=== PATIENT | male | born 1945 | race Hispanic/Latino ===

== ENCOUNTER 2024-10-11 06:51 | Observation (INO) | payer OTHER ==
[2024-10-06 10:40] LABS: BASOPHILS # (AUTO) 0.04 K/uL (0.00-0.20); BASOPHILS % (AUTO) 0.6 % (0.0-5.0); EOSINOPHILS # (AUTO) 0.17 K/uL (0.00-0.70); EOSINOPHILS % (AUTO) 2.6 % (0.0-8.0); HEMATOCRIT 43.2 % (42-54); IMMATURE GRANULOCYTE ABSOLUTE 0.02 K/uL (0-1); LYMPHOCYTES % (AUTO) 31.6 % (21.0-51.0); MEAN CORPUSCULAR HEMOGLOBIN 32.1 pg (27.0-33.0); MEAN CORPUSCULAR HGB CONC 33.6 g/dL (32.0-36.0); MEAN CORPUSCULAR VOLUME 95.6 fL (79-99); MONOCYTES # (AUTO) 0.7 K/uL (0.1-1.0); MONOCYTES % (AUTO) 10.9 % (3.0-13.0); NEUTROPHILS # (AUTO) 3.5 K/uL (1.8-7.7); PLATELET COUNT (AUTO) 180 K/uL (130-400); RED BLOOD CELL COUNT(AUTO) 4.52 MIL/uL (4.50-6.20); WHITE BLOOD COUNT (AUTO) 6.4 K/uL (4.8-10.8)
[2024-10-06 10:50] VITALS: BP 141/86; PULSE 73; RESP 16; TEMP 97.9
[2024-10-06 10:50] LABS: CREATININE 0.8 mg/dL (0.5-1.3); POTASSIUM 4.7 mmol/L (3.5-5.1)
--- NOTE | 2024-10-06 11:28 | NUR ---
PREOP DA RT HERE FOR INCENTIVE SPIROMETRY TEACHING. PT ACHIEVED [id number]
[~2024-10-11] VITALS: Ht 172.7 cm; Wt 110.7 kg
[2024-10-11] VITALS (28 sets, daily range): BP systolic 100–145; BP diastolic 56–88; PULSE 61–82; RESP 14–19; TEMP 96.8–98.7; O2SAT 95–98
[~2024-10-11 06:51] MED LIST: ASPI-1005 PO; ATOR40TA71 PO; LORA10TA60 PO; LOSA50TA64 PO; METO-391 PO
[2024-10-11] MEDS: ceFAZolin SODIUM 2 GM VIAL ONE (08:18)
[2024-10-11] MEDS: LACTATED RINGERS 1000ML 1,000 ML IV ONE (08:18)
[2024-10-11] MEDS ORDERED: LIDOCAINE PF 100MG/5ML (2%) SYRINGE 5ML ONE (08:34)
[2024-10-11] MEDS ORDERED: proPOFol 10 MG/ML 20ML VIAL IV ONE (08:34)
[2024-10-11] MEDS ORDERED: rocuRONium bROMide 10MG/1ML 5ML VL ONE (08:35)
[2024-10-11] MEDS ORDERED: FENTanyl CITRate PF 50 MCG/1 ML 2ML VIAL ONE (08:35)
[2024-10-11] MEDS ORDERED: ROPivacaine 0.5% 5MG/ML 30ML ONE (08:37)
[2024-10-11] MEDS ORDERED: ketaMINE 50MG/ML SYRINGE 50 MG/ML DISP.SYRIN ONE (08:38)
[2024-10-11] MEDS ORDERED: ondanSETRON 4MG INJ ONE (09:51)
[2024-10-11] MEDS ORDERED: dexaMETHasone SOD PHOSPHATE 10MG/ML 1ML VIAL ONE (09:51)
[2024-10-11] MEDS ORDERED: NEOSTIGMINE METHYLSULFATE 1MG/ML IV ONE (10:05)
[2024-10-11] MEDS ORDERED: GLYCOPYRROLATE 0.2 MG/ML 5 ML VIAL ONE (10:05)
[2024-10-11] MEDS: ROPivacaine 0.5% 5MG/ML 30ML ONE (10:48)
[2024-10-11] MEDS: ketOROlac 30MG VIAL (30MG/ML) ONE (10:48)
--- NOTE | 2024-10-11 12:15 | OP ---
Operative Note: DATE OF PROCEDURE: 10/11/24 PREOPERATIVE DIAGNOSIS: Right knee osteoarthritis. POSTOPERATIVE DIAGNOSIS: Right knee osteoarthritis. PROCEDURE PERFORMED: Right knee total knee arthroplasty. SURGEON: Marie Oconnell MD [employer] SALES ENGINEER: Darren Lee. ANESTHESIA: General with adductor canal block. ANESTHESIA: PATRICIO Mcnamara. ESTIMATED BLOOD LOSS: 50cc. COMPLICATIONS: None. DRAINS: None. SPECIMENS REMOVED: resected bone. Not sent to pathology. IMPLANTS: [employer] II BCS size 8 Oxinium femur, size 7 tibial base plate, narrow 35 mm patella, 12 mm polyethylene STATEMENT OF MEDICAL NECESSITY: The patient is a 79-year-old male who suffers from right knee osteoarthritis failing conservative management. After discussion of the risks, benefits, and alternatives with the patient, they voluntarily agreed to undergo the aforementioned procedure. DESCRIPTION OF PROCEDURE: Patient was properly identified in the preoperative holding area. Surgical site marking was verified and surgery consent reviewed. The patient was then taken to the operating room and placed in supine position on the OR table. After induction of general anesthesia, preoperative antibiotics were given, all bony prominences were well-padded, and a well padded tourniquet was applied but not inflated at this time. The right lower extremity was then prepped and draped in usual sterile fashion. Surgical time out was done verifying correct surgery, side, site, and location to be performed. We then began the procedure by exsanguinating the limb using an Esmarch and inflating the tourniquet to 350 mmHg. At this point, we made an anterior midline incision using a 10 blade, coming down sharply the level of the fascia. Skin flaps were elevated medially and laterally. We then obtained a clean 10 blade and performed a standard medial parapatellar arthrotomy. We excised the infrapatellar fat pad. We performed our soft tissue releases off of the tibia. We transected the ACL and removed the anterior portion of the medial & lateral meniscus. We then brought the knee into hyperflexion with the patella everted. We used our entry reamer to enter the femoral canal. We then placed our intramedullary cutting guide for our distal femoral cutting block. We then performed our distal femoral osteotomy ensuring appropriate rotation and removed the bony wafer. We then removed these pins and block and then used jig 2 to size the distal femur with the after mentioned size found. We then placed our 5-in-1 cutting block in 4.5 degrees of external rotation and took our 5 cuts ensuring to protect the patellar tendon and the collateral ligaments. We then removed the cutting block and our bony fragments using a curved osteotome. We then placed our PCL retractor subluxating the tibia anteriorly. Using an extra medullary tibial cutting guide, we hung the block for our proximal tibial cut taking 2 mm off the more diseased portion. Prior to pinning this block in place, we ensured appropriate varus/valgus alignment and posterior slope similar to the chilkat slope of the patient's knee. We then performed our proximal tibial osteotomy and removed the bony wafer using Bovie electrocautery to release any remaining soft tissue attachments. We then used our tibial sizing paddle and checked once more for varus & valgus alignment and found this to be appropriate. At this point, we pinned our tibial paddle in place. We then removed the PCL retractor and subluxated the tibia posteriorly while we placed our femoral trial component. We then finished preparing the notch with the reamer and box chisel. The notch portion of the trial femoral component was then placed. A posterior stabilized polyethylene, size 9 trial was placed. This was then increased up to a size 10 due to laxity with varus and valgus stress. The knee was then taken through range of motion and found to have stable full range of motion. We then placed a bump under the ankle and everted the patella to perform our freehand cut of the undersurface the patella. We then sized our patella and reamed to the lug holes for this. We placed our trial patellar component and begin to take the knee through range of motion. The patella had extreme lateral tracking, and we performed a lateral release. However the patella continued to have significant lateral tracking. We adjusted our tibial component rotation and placed a towel clip to approximate the soft tissues and had slightly better patellar tracking. We therefore elected to go with the 7.5 mm thickness patellar component. At this point we began removing our trial components and punched the tibial keel prior to removing our tibial trial component. Final components were opened and cement was mixed on the back table while we injected local cocktail in the posterior capsule. We then thoroughly irrigated out the bone and dried the bony surfaces. We cemented our tibial component in place ensuring to remove excess cement and placed our trial polyethylene. We then cemented our femoral component in place once again taking time to ensure excess cement was removed leg was brought into full extension to help squeeze the excess cement from around the femoral component. We then brought the knee back in a flexion to remove this portion of the cement at this point we placed the ankle in a bump thoroughly irrigated off the patellar component and cemented our patellar component in standard fashion again removing excess cement. While we waited for the cement to cure, we thoroughly irrigated out the wound with normal saline. Once our cement had cured, we took the knee through a range of motion and found full and stable range of motion. We then elected to use the size 12 polyethylene and removed our trial polyethylene. We impacted our final polyethylene component in place in standard fashion and took the knee through a range of motion check once more. This was satisfactory so we began to repair the arthrotomy using #1 Vicryl in interrupted [id number] fashion. Subcutaneous tissue was repaired using 2-0 Vicryl. Running subcuticular 3-0 Monocryl stitch with Dermabond placed over this for the skin. We then applied a foam barrier dressing and a pressure dressing consisting of 4 x 4's fluffs and an Giuseppe wrap. The tourniquet was then deflated. Patient was awakened from anesthesia, and they were taken to the recovery room in stable condition. MARIE OCONNELL MD Oct 11, 2024 12:15
--- NOTE | 2024-10-11 12:23 | DS ---
Discharge Summary Hospital Course Summary: The patient was admitted to the hospital postoperatively on 10/11/2024 after undergoing right total knee arthroplasty. They did well with routine postoperative pain control. They worked well with physical therapy. They developed some acute blood loss anemia but remained asymptomatic. His blood pressures were a little soft so we decreased the usual pain regimen. He had the normal stress response leukocytosis post operatively but this was noted to be down trending. The hospital course was otherwise uncomplicated. They were subsequently able to be discharged on postoperative day POD 2 once discharge arrangements were made with home health physical therapy. Environmental Science Instructor(s): None Procedure(s): Right total knee arthroplasty, 10/11/2024 Assessment/Plan: ASSESSMENT: Status post right total knee arthroplasty - doing well Acute blood loss anemia - asymptomatic PLAN: See discharge instructions Discharge Instructions: Begin working with home health physical therapy. Dressing may be removed 10/13/2024 and left open to air. Showers ok allowing soap and water to run over the wound. Pat dry. Do not submerge wound in tub/pool. Do not apply ointments. Do not apply Betadine. Do not apply peroxide. Ice packs to decrease pain/swelling. Prescriptions have been sent to the pharmacy: *[place] 5/325mg 1 tab every 4 hours as needed for severe pain. (please call for refills) Cyclobenzaprine 5mg 1 tab every 8 hours as needed for muscle spasm pain. Colace 100mg 1 tab orally twice a day as needed for constipation. Aspirin 325mg daily for 30 days to prevent blood clots. After 30 days resume your usual baby aspirin. Call for a follow-up appointment in 2-3 weeks at [facility]. Home Medications: Active Scripts Hydrocodone/Acetaminophen (Hydrocodon-Acetaminophen 5-325) 5 Mg-325 Mg Tablet, 1 TAB PO Q4H PRN for MODERATE PAIN (4-6), #42 TAB 0 Refills Prov:RENÉ GOODWIN MD 10/13/24 Reported Medications Loratadine (Claritin) 10 Mg Tablet, 10 MG PO AD PRN for ALLERGIES, TAB /08/31 Metoprolol Succinate (Metoprolol Succinate) 50 Mg Tab.er.24h, 25 MG PO AM, TAB 25 Atorvastatin Calcium (Atorvastatin Calcium) 40 Mg Tablet, 20 MG PO HS, TAB 25 Losartan Potassium (Losartan Potassium) 50 Mg Tablet, 25 MG PO AM, TAB 10/06/24 Aspirin (ASPIRIN 81MG CHEW TAB) 81 Mg Tab.chew, 81 MG PO DAILY, TAB.CHEW 10/06/24 RENÉ GOODWIN MD Oct 11, 2024 12:23
[2024-10-11] MEDS ORDERED: FERROUS FUMARATE 324 MG TABLET PO PRN ×2 (12:30→13:30)
[2024-10-11] MEDS: 0.9%NACL 1000ML 1,000 ML IV SCH ×2 (12:30→14:10)
[2024-10-11] MEDS ORDERED: CALCIUM CARB 500MG PO PRN ×2 (12:30→13:30)
[2024-10-11] MEDS ORDERED: ondanSETRON 4MG INJ IVP PRN ×2 (12:30→13:30)
[2024-10-11] MEDS: FENTanyl CITRate PF 50 MCG/1 ML 2ML VIAL ONE (12:35)
[2024-10-11] MEDS: hydroMORPHone 1 MG INJ ONE (13:02)
[2024-10-11] MEDS: ketOROlac 15MG/ML VIAL (15MG/ML) IV SCH (13:26)
[2024-10-11] MEDS: ketOROlac 15MG/ML VIAL (15MG/ML) ONE (13:26)
[2024-10-11] MEDS ORDERED: traMADol HCL 50 MG TABLET PO PRN (13:30)
[2024-10-11] MEDS ORDERED: PoTASSium chl 10% ELIXIR 20MEQ 20 MEQ/15 ML UDCUP PO PRN (13:30)
[2024-10-11] MEDS ORDERED: HYDROcodone/APAP 5/325 1 TAB TABLET PO PRN (13:30)
[2024-10-11] MEDS ORDERED: LORATAdine 10 mg 10 MG TABLET PO PRN (13:30)
[2024-10-11] MEDS ORDERED: PoTASSium chloRIDE 20MEQ ER 20 MEQ ERTAB PO PRN (13:30)
[2024-10-11] MEDS ORDERED: PoTASSium chloRIDE 20MEQ/100ML 100 ML IV PRN (13:30)
--- NOTE | 2024-10-11 13:45 | NUR ---
Admit Patient admitted from PACU. Patient aox4, complaining of pain in right knee, 01/13. and family at bedside, oriented to room and educated on plan of care. Patient's right knee dressing cdi, pulse strong, sensation present. SCD applied.
[2024-10-11] MEDS: FAMOTIDINE 20MG VIAL IV ONE (14:03)
[2024-10-11] MEDS: acetaMINOPHEN 325 MG TAB ONE (14:03)
--- NOTE | 2024-10-11 14:05 | HMCIMG ---
KNEE/PATELLA 1-2VWS RT HISTORY: Post right total knee arthroplasty COMPARISON: None TECHNIQUE: Images of the right knee were obtained. FINDINGS: Right total knee arthroplasty changes are seen. Soft tissue swelling is seen with soft tissue emphysema. There is no acute displaced fracture or dislocation. Degenerative changes are seen. IMPRESSION: 1. Findings as described above.
[2024-10-11] MEDS: GABApentin 100 MG CAPSULE PO SCH (14:09)
[2024-10-11] MEDS: HYDROcodone/APAP 5/325 1 TAB TABLET PO PRN ×2 (14:10→18:24)
--- NOTE | 2024-10-11 15:45 | NUR ---
Order received and patient seen. Prior to surgery, patient was indep and lives with spouse. Plan is for DC home. Patient reports he has walker from previous surgery. Addendum: 10/11/24 at 1639 by KOLBY CARLTON PT Amended: Links added.
[2024-10-11] MEDS: INSULIN humuLIN R 100 UNIT/ML 3ML SQ SCH (16:30)
[2024-10-11] MEDS: ceFAZolin SODIUM 2 GM VIAL IVP SCH (16:58)
--- NOTE | 2024-10-11 17:00 | NUR ---
ORTHO COORDINATOR: TEACHING REGARDING DVT AND PNEUMONIA PREVENTION, PAIN EXPECTATIONS AND PAIN MANAGEMENT. PATIENT IN BED, AND SON AT BEDSIDE. B SCD SLEEVES IN PLACE. LEFT NOT FUNCTIONING. REPLACED SLEEVES. B SCD IN PLACE AND FUNCTIONING. ICE PACK TO RIGHT KNEE. INCENTIVE SPIROMETER ON BEDSIDE TRAY. PATIENT RETURN DEMONSTRATED PROPER USE OF INCENTIVE SPIROMETER AND FOOT FLEXION AND EXTENSION EXERCISES. PATIENT INSTRUCTED TO PERFORM INCENTIVE SPIROMETER 10 BREATHS PER HOUR. PATIENT AND VERBALIZED UNDERSTANDING. PAIN EXPECTATIONS REVIEWED. PATIENT HAD LEFT TKA IN 2011, REPORTS MORE PAIN WITH THIS KNEE. REVIEWED NUMERIC PAIN SCORE. ENCOURAGED PATIENT TO SET AN ALARM EVERY FOUR HOURS TO CHECK PAIN LEVEL. REMINDED PAIN MEDICATION MUST BE REQUESTED. RATIONALE PROVIDED. PATIENT VERBALIZED UNDERSTANDING REGARDING PAIN MANAGEMENT. PATIENT DESIRES TO RETURN HOME WITH HOME HEALTH PHYSICAL THERAPY. NO ADDITIONAL QUESTIONS/CONCERNS AT THIS TIME. .
[2024-10-11] MEDS ORDERED: ceFAZolin SODIUM 1 GM VIAL IVP SCH (18:30)
[2024-10-11] MEDS: atorVAStatin 20 MG TABLET PO SCH (20:03)
[2024-10-11] MEDS: doCUSate SODIUM 100 MG CAP PO SCH (20:03)
[2024-10-11] MEDS: CYCLOBENZAPRINE HCL 10 MG TABLET PO PRN (22:21)
[2024-10-12] VITALS (8 sets, daily range): BP systolic 87–113; BP diastolic 46–57; PULSE 59–88; RESP 18–20; TEMP 97.9–98.5; O2SAT 96
[2024-10-12 04:16] LABS: HEMATOCRIT 32.5 % (42-54); MEAN CORPUSCULAR HEMOGLOBIN 31.9 pg (27.0-33.0); MEAN CORPUSCULAR HGB CONC 33.5 g/dL (32.0-36.0); RED BLOOD CELL COUNT(AUTO) 3.42 MIL/uL (4.50-6.20); RED CELL DISTRIBUTION WIDTH 12.9 % (11.0-15.5); WHITE BLOOD COUNT (AUTO) 15.2 K/uL (4.8-10.8)
[2024-10-12 04:30] LABS: CREATININE 1.3 mg/dL (0.5-1.3); POTASSIUM 4.4 mmol/L (3.5-5.1)
[2024-10-12] MEDS: LoSARTan 25 MG TABLET PO SCH (07:34)
--- NOTE | 2024-10-12 08:21 | PN ---
Ortho postop day one. This morning the patient is awake alert oriented. He is resting comfortably seated out of bed in a chair enjoying his breakfast. Reports adequate pain control overnight. Vital signs have been stable although he has had some slight hypotension 98/54 typically running in the one 100s over 60s. The patient asymptomatic. Laboratory results reviewed. Noted to have a drop in hemoglobin and hematocrit as expected after TKA. Patient is asymptomatic we will address per protocol as necessary. Operative findings discussed with the patient. Voiding on his own without difficulty. Performing incentive spirometry appropriately. I removed the Giuseppe bandage from the operative extremity in the anterior dressing is intact. He is alternating extension and flexion on a footstool. Gastrocnemius soft nontender. Negative Homans. Patient is anticipating going home with home health. Voices that he will need a shower chair we will refer this to case management. And ambulated with therapy yesterday and walked about 30 ft and is pending further physical therapy this morning. Assessment: Status post right total knee arthroplasty. Asymptomatic acute postoperative blood loss anemia. Plan: Continue with Dr. Oconnell's total knee arthroplasty protocol and discharge planning. Asymptomatic acute postoperative blood loss anemia addressed with the protocol as necessary. Vitals/Labs Vital Signs Date Time Temp Pulse Resp B/P (MAP) Pulse Ox O2 Delivery O2 Flow Rate FiO2 10/12/24 07:50 98.1 60 18 96/55 100 Nasal Cannula 2.0 24 Laboratory Tests 10/12/24 03:37 Medications Current Medications Cefazolin Sodium 2 gm STK-MED ONCE .ROUTE Last administered on 10/11/24at 10:18; Start 10/11/24 at 07:53; Stop 10/11/24 at 07:53; Status DC Lactated Ringer's 1,000 ml @ As Directed STK-MED ONCE IV Last administered on 10/11/24at 08:18; Start 10/11/24 at 07:53; Stop 10/11/24 at 07:53; Status DC Acetaminophen 325 mg STK-MED ONCE .ROUTE; Start 10/11/24 at 08:28; Stop 10/11/24 at 08:29; Status DC Famotidine 20 mg STK-MED ONCE IV; Start 10/11/24 at 08:28; Stop 10/11/24 at 08:29; Status DC Lidocaine HCl 100 mg STK-MED ONCE .ROUTE; Start 10/11/24 at 08:34; Stop 10/11/24 at 08:34; Status DC Propofol 200 mg STK-MED ONCE IV; Start 10/11/24 at 08:34; Stop 10/11/24 at 08:35; Status DC Rocuronium [place] 50 mg STK-MED ONCE .ROUTE; Start 10/11/24 at 08:35; Stop 10/11/24 at 08:35; Status DC Fentanyl Citrate 100 mcg STK-MED ONCE .ROUTE; Start 10/11/24 at 08:35; Stop 10/11/24 at 08:35; Status DC Ropivacaine 150 mg STK-MED ONCE .ROUTE; Start 10/11/24 at 08:37; Stop 10/11/24 at 08:38; Status DC Ketamine HCl 50 mg STK-MED ONCE .ROUTE; Start 10/11/24 at 08:38; Stop 10/11/24 at 08:38; Status DC Ketorolac Tromethamine 30 mg STK-MED ONCE .ROUTE Last administered on 10/11/24at 10:48; Start 10/11/24 at 08:46; Stop 10/11/24 at 08:47; Status DC Ropivacaine 150 mg STK-MED ONCE .ROUTE Last administered on 10/11/24at 10:48; Start 10/11/24 at 08:46; Stop 10/11/24 at 08:47; Status DC Dexamethasone Sodium Phosphate 10 mg STK-MED ONCE .ROUTE; Start 10/11/24 at 09:51; Stop 10/11/24 at 09:51; Status DC Ondansetron HCl 4 mg STK-MED ONCE .ROUTE; Start 10/11/24 at 09:51; Stop 10/11/24 at 09:51; Status DC Glycopyrrolate 1 mg STK-MED ONCE .ROUTE; Start 10/11/24 at 10:05; Stop 10/11/24 at 10:05; Status DC Neostigmine Methylsulfate 10 mg STK-MED ONCE IV; Start 10/11/24 at 10:05; Stop 10/11/24 at 10:05; Status DC Sodium Chloride 1,000 ml @ 100 mls/hr Q10H IV; Start 10/11/24 at 12:30; Stop 10/12/24 at 12:29 Polyethylene Glycol 17 gm DAILY PO; Start 10/12/24 at 09:00; Stop 11/11/24 at 08:59 Bisacodyl 10 mg DAILY PRN RC; Start 10/14/24 at 12:30; Stop 11/13/24 at 12:29 Ferrous Fumarate 324 mg DAILY PRN PO; Start 10/11/24 at 12:30; Stop 11/10/24 at 12:29 Ondansetron HCl 4 mg Q6H PRN IVP; Start 10/11/24 at 12:30; Stop 11/10/24 at 12:29 Calcium Carbonate 500 mg Q12H PRN PO; Start 10/11/24 at 12:30; Stop 11/10/24 at 12:29 Cefazolin Sodium 2 gm Q8H IVP Last administered on 10/12/24at 01:34; Start 10/11/24 at 17:30; Stop 10/12/24 at 01:31; Status DC Fentanyl Citrate 100 mcg STK-MED ONCE .ROUTE Last administered on 10/11/24at 12:35; Start 10/11/24 at 12:32; Stop 10/11/24 at 12:32; Status DC Hydromorphone HCl 1 mg STK-MED ONCE .ROUTE Last administered on 10/11/24at 13:02; Start 10/11/24 at 12:42; Stop 10/11/24 at 12:43; Status DC Sodium Chloride 1,000 ml @ 100 mls/hr Q10H IV Last administered on 10/11/24at 23:51; Start 10/11/24 at 13:30; Stop 10/12/24 at 13:29 Polyethylene Glycol 17 gm DAILY PO; Start 10/12/24 at 09:00; Stop 10/11/24 at 13:18; Status DC Bisacodyl 10 mg DAILY PRN RC; Start 10/14/24 at 13:30; Stop 10/11/24 at 13:18; Status DC Ferrous Fumarate 324 mg DAILY PRN PO; Start 10/11/24 at 13:30; Stop 10/11/24 at 13:18; Status DC Ondansetron HCl 4 mg Q6H PRN IVP; Start 10/11/24 at 13:30; Stop 10/11/24 at 13:18; Status DC Calcium Carbonate 500 mg Q12H PRN PO; Start 10/11/24 at 13:30; Stop 10/11/24 at 13:18; Status DC Insulin Human Regular INSULIN SLIDING SCAL... ACHS SQ; Start 10/11/24 at 16:30; Stop 11/10/24 at 16:29 Cefazolin Sodium 2 gm Q8H IVP; Start 10/11/24 at 18:30; Stop 10/11/24 at 13:19; Status DC Cyclobenzaprine HCl 5 mg Q8H PRN PO Last administered on 10/11/24at 22:21; Start 10/11/24 at 13:30; Stop 11/10/24 at 13:29 Gabapentin 100 mg TID PO Last administered on 10/11/24at 20:04; Start 10/11/24 at 14:00; Stop 11/10/24 at 13:59 Aspirin 325 mg DAILY PO; Start 10/12/24 at 09:00; Stop 11/11/24 at 08:59 Ketorolac Tromethamine 15 mg Q8H IV Last administered on 10/12/24at 05:23; Start 10/11/24 at 13:30; Stop 10/12/24 at 05:31; Status DC Docusate Sodium 100 mg BID PO Last administered on 10/11/24at 20:03; Start 10/11/24 at 21:00; Stop 11/10/24 at 20:59 Potassium Chloride 100 ml @ 100 mls/hr AD PRN IV; Start 10/11/24 at 13:30; Stop 11/10/24 at 13:29 Potassium Chloride 20 meq AD PRN PO; Start 10/11/24 at 13:30; Stop 11/10/24 at 13:29 Potassium Chloride 20 meq AD PRN PO; Start 10/11/24 at 13:30; Stop 11/10/24 at 13:29 Tramadol HCl 50 mg Q6H PRN PO; Start 10/11/24 at 13:30; Stop 10/16/24 at 13:29 Acetaminophen/ Hydrocodone Bitart Q4H PRN PO; Start 10/11/24 at 13:30; Stop 10/11/24 at 13:22; Status DC Atorvastatin Calcium 20 mg HS PO Last administered on 10/11/24at 20:03; Start 10/11/24 at 21:00; Stop 11/10/24 at 20:59 Loratadine 10 mg DAILY PRN PO; Start 10/11/24 at 13:30; Stop 11/10/24 at 13:29 Losartan Potassium 25 mg AM PO; Start 10/12/24 at 09:00; Stop 11/11/24 at 08:59 Metoprolol Succinate 25 mg AM PO; Start 10/12/24 at 09:00; Stop 11/11/24 at 08:59 Ketorolac Tromethamine 15 mg STK-MED ONCE .ROUTE; Start 10/11/24 at 13:19; Stop 10/11/24 at 13:19; Status DC Acetaminophen/ Hydrocodone Bitart 1 tab Q4H PRN PO Last administered on 10/11/24at 18:24; Start 10/11/24 at 13:30; Stop 10/16/24 at 13:29 Acetaminophen/ Hydrocodone Bitart 2 tab Q4H PRN PO Last administered on 10/12/24at 03:30; Start 10/11/24 at 13:30; Stop 10/16/24 at 13:29 ROSALIE FRANCO NP Oct 12, 2024 08:21
[2024-10-12] MEDS: polyETHYLene GLYCol 3350 17 GM POWD.PACK PO SCH (08:38)
[2024-10-12] MEDS: ASPIRIN 325MG EC TAB PO SCH (08:38)
[2024-10-12] MEDS: metOPROLol sucCINATE 25 MG TAB.SR.24H PO SCH (08:40)
[2024-10-12] MEDS ORDERED: polyETHYLene GLYCol 3350 17 GM POWD.PACK PO SCH (09:00)
--- NOTE | 2024-10-12 11:30 | NUR ---
HYPOTENSION Patient up in chair in morning. 70/30 bp, recheck 75/35. Patient aox4, no complaints of dizziness, talking. Assisted to bed and placed in trendelenberg - patient able to transfer with mininal assistance. Repeat BP 10 min later 87/45. Notified primary RADIOTELEGRAPHER Dora. Per medical scientific officer, d/c gabapentin, admin 1 tab only of norco, hold bp as appropriate. Muscle relaxer ok to give.
--- NOTE | 2024-10-12 13:06 | NUR ---
DC PLAN VISITED WITH PATIENT. PATIENT LIVES WITH SPOUSE. INDEPENDENT ABLE TO PERFORM ADL'S. PATIENT HAS WALKER AND BEDSIDE COMMODE. COMFIRMED COMMODE CM RECEIVE MESSAGE FROM [facility] THIS MORNING THAT PATIENT MIGHT NEED ONE. PER PATIENT TOLD HIM THEY DO HAVE IT ITS JUST IN THE GARAGE. PRESENT AND CONFIRMED THEY HAVE COMMODE AND WALKER. JONG RECEIVED FOR ANY IN NETWORK BUT WOULD PREFER [facility]. PACKET SENT SPOKE TO [facility] SAID RECEIVED AND WORKING ON IT. Addendum: 10/12/24 at 1322 by JA STANFORD RN CM Amended: Links added.
[2024-10-13 04:09] VITALS: BP 111/71; PULSE 101; RESP 19; TEMP 98.8
[2024-10-13 07:53] VITALS: BP 121/61; PULSE 101; RESP 18; TEMP 99
[2024-10-13 08:00] VITALS: O2SAT 99
[2024-10-13 11:15] LABS: MEAN CORPUSCULAR HEMOGLOBIN 32.5 pg (27.0-33.0); MEAN CORPUSCULAR HGB CONC 34.1 g/dL (32.0-36.0); MEAN CORPUSCULAR VOLUME 95.1 fL (79-99); RED BLOOD CELL COUNT(AUTO) 3.05 MIL/uL (4.50-6.20); RED CELL DISTRIBUTION WIDTH 13.1 % (11.0-15.5); WHITE BLOOD COUNT (AUTO) 12.1 K/uL (4.8-10.8)
[2024-10-13 11:45] VITALS: BP 104/61; PULSE 91; RESP 20; TEMP 98.4
--- NOTE | 2024-10-13 13:45 | NUR ---
ORTHO COORDINATOR: REINFORCED TEACHING PATIENT UP TO RESTROOM. AT BEDSIDE. REINFORCED TEACHING REGARDING CONTINUATION OF DVT AND PNEUMONIA PREVENTION ONCE DISCHARGED HOME WITH HOME HEALTH PHYSICAL THERAPY. ENCOURAGED TO HAVE PATIENT CONTINUE TO PREMEDICATE PRIOR TO PHYSICAL THERAPY. PATIENT'S VERBALIZED UNDERSTANDING TO INSTRUCTIONS. NO ADDITIONAL QUESTIONS/CONCERNS AT THIS TIME.
[2024-10-13 13:47] VITALS: BP 209/95
--- NOTE | 2024-10-13 14:58 | NUR ---
[facility] [phone] SENT UPDATES REQUESTED BY NM INCLUDING REPEAT CBC. ACCEPTED TO [facility] SPOKE TO [facility] SAID WILL SEE PATIENT TOMORROW. LET MD AND NURSE KNOW OF ACCEPTANCE. Addendum: 10/13/24 at 1501 by JA STANFORD RN CM Amended: Links added.
[2024-10-13 15:15] VITALS: BP 114/53; PULSE 89; RESP 20; TEMP 98.6
[2024-10-13] MEDS ORDERED: CYCL-309 PO (16:38)
[2024-10-13] MEDS ORDERED: DOCU-116 PO (16:38)
[2024-10-13] MEDS ORDERED: HYDR-4060 PO (16:38)
[2024-10-13] MEDS ORDERED: ASPI-891 PO (16:38)
--- NOTE | 2024-10-13 17:32 | NUR ---
DISCHARGE Patient alert and oriented. Patient at bedside with no complaints at this time. APC notified and called report spoke to Karen LINARES.
[2024-10-14] MEDS ORDERED: BisaCODYL 10 MG SUPP.RECT RC PRN ×2 (12:30→13:30)
== END 2024-10-13 18:25 | disposition home or self-care (01) ==
LOC: DAH 06:51 → DAHIP 06:52 → DAH 06:52 → 4DH 13:45
PROVIDERS: ADMIT Student in an Organized Health Care Education/Training Program; ATTEND Student in an Organized Health Care Education/Training Program
DX: M17.11 Unilateral primary osteoarthritis, right knee (principal); G89.18 Other acute postprocedural pain; D62 Acute posthemorrhagic anemia; D72.829 Elevated white blood cell count, unspecified; I25.10 Atherosclerotic heart disease of native coronary artery without angina pectoris; I11.0 Hypertensive heart disease with heart failure; I50.9 Heart failure, unspecified; E03.9 Hypothyroidism, unspecified; Z98.890 Other specified postprocedural states; Z79.899 Other long term (current) drug therapy
CPT/HCPCS: 80048 ×2; 85025; 84134; 86140; 36415 ×3; 87641; 27447; 64447; 96374; 96376 ×3; 96375; 82948 ×9; 73560; 97161; 97116 ×4; 85027 ×2; 97530 ×5; G0378 ×50; A4663; J7120; J3490 ×4; J3010 ×2; J1171; J1100; J2003; J2704; J2405; J1885 ×4; J2710; J2795 ×2; J0690 ×3; C1713 ×2; C1776 ×2; A4649 ×2; A4930; A6255; A5120; A4215; A4223 ×2; A4222; A4221; A4216; 96365